=== PATIENT | female | born 1975 | race Asian ===

== ENCOUNTER 2016-10-14 16:51 | Emergency (ER) | payer OTHER ==
[2016-10-14 22:16] VITALS: BP 118/78
== END 2016-10-14 22:16 | disposition home or self-care (01) ==
LOC: ED 16:51
DX: S01.82XA Laceration with foreign body of other part of head, initial encounter (principal); W18.30XA Fall on same level, unspecified, initial encounter; Y93.89 Activity, other specified; Y92.89 Other specified places as the place of occurrence of the external cause; Y99.8 Other external cause status
CPT/HCPCS: 90715; J2001

== ENCOUNTER 2016-10-16 13:17 | Emergency (ER) | payer OTHER ==
[~2016-10-16] VITALS: Ht 152.4 cm; Wt 44.5 kg
[2016-10-16 14:26] VITALS: BP 134/81
== END 2016-10-16 16:40 | disposition left against medical advice (07) ==
LOC: ED 13:17
DX: Z53.21 Procedure and treatment not carried out due to patient leaving prior to being seen by health care provider (principal)